=== PATIENT | female | born 1960 | race Caucasian/White ===

== ENCOUNTER → 2020-06-09 | Outpatient (CLI) | payer OTHER | LOC: RAD 06-07 10:30 | DX: N89.8 Other specified noninflammatory disorders of vagina (principal); N83.8 Other noninflammatory disorders of ovary, fallopian tube and broad ligament; M54.5 Low back pain ==

== ENCOUNTER → 2020-06-15 | Outpatient (CLI) | payer OTHER | LOC: RAD 07:40 | DX: C80.1 Malignant (primary) neoplasm, unspecified (principal) | CPT/HCPCS: Q9967 ==